=== PATIENT | male | born 1980 | race Two or more races ===

== ENCOUNTER → 2016-07-07 | Outpatient (CLI) | payer OTHER ==
[2016-07-07 09:41] LABS: Albumin 4.4 g/dL (3.4-5.0); Bilirubin, Total 0.8 mg/dL (0.2-1.0); Calcium 9.1 mg/dL (8.5-10.1); Potassium 4.1 mmol/L (3.5-5.1); Total Protein 7.9 g/dL (6.4-8.2)
[2016-07-07 09:48] LABS: Basophils # (auto) 0 uL; Basophils % (auto) 0.5 % (0.0-2.0); Eosinophils # (auto) 0.1 uL; Eosinophils % (auto) 1.2 % (0.0-7.0); Hematocrit 42.9 % (41.0-53.0); Hemoglobin 14.6 g/dL (13.5-17.5); Lymphocytes # (auto) 1.8 uL; Lymphocytes % (auto) 40.4 % (10.0-50.0); Mean Corpuscular Hemoglobin 29.6 pg (28.0-32.0); Mean Corpuscular Hgb Conc. 33.9 g/dL (32.0-36.0); Mean Corpuscular Volume 87.3 fL (80.0-100.0); Mean Platelet Volume 9.6 fL (7.4-10.4); Monocytes # (auto) 0.4 uL; Neutrophils # (auto) 2.2 uL; Neutrophils % (auto) 48.9 % (37.0-80.0); Platelet Count (auto) 216 10^3/uL (140-450); Red Cell Distribution Width 13.1 % (11.6-16.0); White Blood Cell 4.5 10^3/uL (4.4-10.8)
== END | disposition home or self-care (01) ==
LOC: LAB 07:57
PROVIDERS: ATTEND Physician Assistant
DX: F41.9 Anxiety disorder, unspecified (principal); R53.83 Other fatigue; G43.009 Migraine without aura, not intractable, without status migrainosus
CPT/HCPCS: 36415; 80053; 80061; 82306; 82607; 83036; 84403; 84443; 85025

== ENCOUNTER 2021-01-27 21:29 | Inpatient (IN) | payer OTHER ==
[~2021-01-27] VITALS: Ht 170.2 cm; Wt 70.3 kg
[2021-01-27 22:29] LABS: Basophils # (auto) 0 10 ^3/uL (0-0.2); Basophils % (auto) 0.5 % (0.0-2.0); Eosinophils # (auto) 0.1 10 ^3/uL (0-0.8); Eosinophils % (auto) 0.7 % (0.0-7.0); Hematocrit 43.6 % (41.0-53.0); Hemoglobin 14.7 g/dL (13.5-17.5); Lymphocytes # (auto) 2.3 10 ^3/uL (0.4-5.4); Lymphocytes % (auto) 33.4 % (10.0-50.0); Mean Corpuscular Hemoglobin 29.5 pg (28.0-32.0); Mean Corpuscular Hgb Conc. 33.7 g/dL (32.0-36.0); Mean Corpuscular Volume 87.4 fL (80.0-100.0); Monocytes # (auto) 0.6 10 ^3/uL (0-1.3); Monocytes % (auto) 8.4 % (0.0-12.0); Neutrophils # (auto) 3.9 10 ^3/uL (1.6-8.6); Nucleated Red Blood Cells % 0.1 %; Red Blood Cells 4.99 10^6/uL (4.5-5.90); Red Cell Distribution Width 12.4 % (11.8-14.3); White Blood Cell 6.9 10^3/uL (4.4-10.8)
[2021-01-27] MEDS ORDERED: IOHEXOL 350 MG/ML 100ML IJ ONE (22:33)
[2021-01-27 22:36] LABS: INR 1.05 (0.9-1.15); Partial Thromboplastin Time 23.7 sec (23.6-33.0)
[2021-01-27 22:39] LABS: Albumin 4.4 g/dL (3.4-5.0); Potassium 4.2 mmol/L (3.5-5.1)
[2021-01-27 22:42] LABS: BUN/Creatinine Ratio 10.6; Bilirubin, Total 0.5 mg/dL (0.2-1.0); Total Protein 8.2 g/dL (6.4-8.2)
[2021-01-28] MEDS ORDERED: TEMAZEPAM 15 MG CAP PO PRN (03:00)
[2021-01-28] MEDS ORDERED: ONDANSETRON HCL 4 MG/2 ML VIAL IV PRN (03:00)
[2021-01-28] MEDS ORDERED: HYDROcodone-ACET 5/325MG TAB PO PRN (03:00)
[2021-01-28] MEDS ORDERED: NITROGLYCERIN 0.4 MG SL TAB SL PRN (03:00)
[2021-01-28] MEDS ORDERED: MORPHINE SULFATE INJECTION 2 MG/ML SYRG IV PRN (03:00)
[2021-01-28] MEDS ORDERED: ACETAMINOPHEN 325 MG TAB PO PRN (03:00)
[2021-01-28] MEDS: PANTOPRAZOLE 40 MG TAB PO SCH (10:36)
[2021-01-28 22:00] VITALS: BP 120/72
[2021-01-28 22:30] VITALS: BP 120/72
[2021-01-29] MEDS ORDERED: IBUP200C3 PO (01:02)
[2021-01-29 05:00] VITALS: BP 130/76
[2021-01-29 06:10] LABS: BUN/Creatinine Ratio 12.8; Calcium 8.8 mg/dL (8.5-10.1); Potassium 4.1 mmol/L (3.5-5.1)
[2021-01-29 09:00] VITALS: BP 117/71
[2021-01-29] MEDS: PANTOPRAZOLE 40 MG TAB PO SCH ×2 (09:23→21:59)
[2021-01-29 13:00] VITALS: BP 129/75
[2021-01-29 17:02] VITALS: BP 104/63
[2021-01-29 21:30] VITALS: BP 112/74
[2021-01-30 05:00] VITALS: BP 147/57
[2021-01-30] MEDS: PANTOPRAZOLE 40 MG TAB PO SCH (08:51)
[2021-01-30 09:00] VITALS: BP 116/77
[2021-01-30 17:00] VITALS: BP 131/75
[2021-01-30 22:00] VITALS: BP 113/71
[2021-01-31 05:00] VITALS: BP 104/75
[2021-01-31 09:00] VITALS: BP 100/75
[2021-01-31] MEDS: PANTOPRAZOLE 40 MG TAB PO SCH (10:00)
[2021-01-31 12:12] VITALS: BP 100/75
== END 2021-01-31 13:11 | disposition home or self-care (01) | DRG 201 ==
LOC: ER 21:41 → TELE 01-28 02:54 → TELE-WESTW 01-28 21:08
PROVIDERS: ADMIT Nurse Practitioner; ATTEND Internal Medicine Pulmonary Disease
DX: S27.0XXA Traumatic pneumothorax, initial encounter (principal); R06.03 Acute respiratory distress; W51.XXXA Accidental striking against or bumped into by another person, initial encounter; Y93.66 Activity, soccer; Y92.322 Soccer field as the place of occurrence of the external cause; Y99.8 Other external cause status
CPT/HCPCS: 36415; 71045; 71260; 80048; 80053; 85025; 85610; 85730; 86850; 86900; 86901; 87426; 93005; G0378

== ENCOUNTER 2022-05-17 13:12 | Emergency (ER) | payer SELFPAY ==
[~2022-05-17] VITALS: Ht 175.3 cm; Wt 72.0 kg
[~2022-05-17 13:12] MED LIST: IBUP200C3 PO
[2022-05-17 13:46] LABS: Basophils # (auto) 0 10 ^3/uL (0-0.2); Basophils % (auto) 0.5 % (0.0-2.0); Eosinophils # (auto) 0.1 10 ^3/uL (0-0.8); Eosinophils % (auto) 1.1 % (0.0-7.0); Hemoglobin 15.1 g/dL (13.5-17.5); Mean Corpuscular Hemoglobin 29.7 pg (28.0-32.0); Mean Corpuscular Hgb Conc. 34.3 g/dL (32.0-36.0); Mean Corpuscular Volume 86.5 fL (80.0-100.0); Monocytes # (auto) 0.4 10 ^3/uL (0-1.3); Monocytes % (auto) 6.8 % (0.0-12.0); Neutrophils # (auto) 2.7 10 ^3/uL (1.6-8.6); Neutrophils % (auto) 52.6 % (37.0-80.0); Nucleated Red Blood Cells % 0.2 %; Red Blood Cells 5.09 10^6/uL (4.5-5.90); Red Cell Distribution Width 12.2 % (11.8-14.3); White Blood Cell 5.2 10^3/uL (4.4-10.8)
[2022-05-17 14:03] LABS: Albumin 4.6 g/dL (3.4-5.0); Calcium 9.4 mg/dL (8.5-10.1); Potassium 3.7 mmol/L (3.5-5.1)
[2022-05-17 14:06] LABS: BUN/Creatinine Ratio 10.2; Bilirubin, Total 0.6 mg/dL (0.2-1.0); Total Protein 7.9 g/dL (6.4-8.2)
[2022-05-17 17:44] VITALS: BP 121/87
== END 2022-05-17 16:41 | disposition home or self-care (01) ==
LOC: ER 13:12
DX: R07.89 Other chest pain (principal)
CPT/HCPCS: 36415; 71045; 80053; 84484; 85025; 93005